=== PATIENT | male | born 1990 | race Caucasian/White ===

== ENCOUNTER 2020-12-10 16:26 | Emergency (ER) | payer OTHER, BC ==
[~2020-12-10] VITALS: Ht 177.8 cm; Wt 113.4 kg
[~2020-12-10 16:26] MED LIST: ABILIFY20 MG PO; BACTRIM DS TAB1 EACH PO; CLONAZEPAM 0.50.5 M1 PO; CLOZAPINE100 M1 PO; CLOZAPINE50 MG PO; HYDROXYZINE HCL25 M1 PO; INVEGA SUS234 MG/1.5 IM; KEFLEX500 MG PO; LEXAPRO20 MG PO; LITHIUM CARBON600 MG PO; ONDANSETRON ODT8 MG PO; PHENERGAN 25 MG25 M1 PO; PROMETHEGAN25 MG RC; ZANTAC 7575 MG PO
[2020-12-10] MEDS ORDERED: PROPRANOLOL 20M20 M1 PO (16:35)
[2020-12-10] MEDS ORDERED: DEPAKOTE250 MG PO (16:36)
[2020-12-10] MEDS ORDERED: FLEXERIL PO (17:30)
[2020-12-10] MEDS ORDERED: MEDROLDOSEPACK PO (17:30)
[2020-12-10 17:42] VITALS: BP 155/92
== END 2020-12-10 17:43 | disposition home or self-care (01) ==
LOC: M.ERS 16:26
DX: M54.5 Low back pain (principal); Z88.1 Allergy status to other antibiotic agents; X50.0XXA Overexertion from strenuous movement or load, initial encounter; Y93.89 Activity, other specified; Y92.89 Other specified places as the place of occurrence of the external cause; Y99.0 Civilian activity done for income or pay

== ENCOUNTER 2021-04-17 12:18 | Emergency (ER) | payer BC ==
[~2021-04-17] VITALS: Ht 177.8 cm; Wt 108.9 kg
[~2021-04-17 12:18] MED LIST changes: +DEPAKOTE250 MG PO; +FLEXERIL PO; +INDERAL60 MG PO; +LITHIUM CARBON450 MG PO; -LITHIUM CARBON600 MG PO; +MEDROLDOSEPACK PO
[2021-04-17 13:26] VITALS: BP 146/91
== END 2021-04-17 13:27 | disposition home or self-care (01) ==
LOC: M.ERS 12:18
DX: R50.9 Fever, unspecified (principal); Z20.822 Contact with and (suspected) exposure to COVID-19; F20.9 Schizophrenia, unspecified; F32.9 Major depressive disorder, single episode, unspecified; F41.9 Anxiety disorder, unspecified; F17.210 Nicotine dependence, cigarettes, uncomplicated; Z79.899 Other long term (current) drug therapy; Z88.0 Allergy status to penicillin; Z88.1 Allergy status to other antibiotic agents